=== PATIENT | male | born 1980 | race Caucasian/White ===

== ENCOUNTER 2017-12-03 04:03 | Emergency (ER) | payer SELFPAY ==
[~2017-12-03] VITALS: Ht 175.3 cm; Wt 83.9 kg
[2017-12-03] MEDS ORDERED: TRAMADOL HCL 50 MG TAB PO ONE (04:45)
[2017-12-03] MEDS ORDERED: METHYLPREDNISOLONE SOD SUCC 125 MG/2ML VIAL IV ONE (04:45)
[2017-12-03 04:46] LABS: BASOPHILS # (AUTO) 0.1 (0.0-0.1); BASOPHILS % 0.6 % (0.0-1.0); EOSINOPHILS # (AUTO) 0.2 (0.0-0.4); EOSINOPHILS % 1.2 % (0.0-6.0); HEMATOCRIT 39.5 % (38.2-49.6); HEMOGLOBIN 13.5 g/dL (14.0-18.0); LYMPHOCYTES # (AUTO) 1.5 (1.0-3.2); LYMPHOCYTES % 11.9 % (18.0-39.1); MEAN CORPUSCULAR HEMOGLOBIN 30.2 pg (28-32); MEAN CORPUSCULAR HGB CONC 34.2 g/dL (31-35); MEAN CORPUSCULAR VOLUME 88.4 fL (81-99); MONOCYTES % 8.1 % (4.4-11.3); NEUTROPHILS # (AUTO) 9.8 (2.1-6.9); NEUTROPHILS % 76.5 % (38.7-80.0); PLATELET COUNT 305 x10e3/uL (140-360); RED BLOOD COUNT 4.47 x10e6/uL (4.3-5.7)
[2017-12-03 05:04] LABS: ALANINE AMINOTRANSFERASE 38 IU/L (0-55); ALBUMIN 3.7 g/dL (3.5-5.0); ALBUMIN/GLOBULIN RATIO 1.1 (0.8-2.0); ALKALINE PHOSPHATASE 67 IU/L (40-150); ANION GAP 10.6 mmol/L (8-16); BLOOD UREA NITROGEN 14 mg/dL (7-26); BUN/CREATININE RATIO 17 (6-25); CALCIUM 9.2 mg/dL (8.4-10.2); CARBON DIOXIDE 26 mmol/L (22-29); CHLORIDE 101 mmol/L (98-107); CREATININE, SERUM 0.82 mg/dL (0.72-1.25); EST GLOMERULAR FILTRATION RATE > 60 ML/MIN (60-); GLUCOSE 102 mg/dL (74-118); POTASSIUM 3.6 mmol/L (3.5-5.1); SODIUM 134 mmol/L (136-145)
[2017-12-03] MEDS ORDERED: KETOROLAC TROMETHAMINE 30 MG/ML VIAL IV STA (05:18)
--- NOTE | 2017-12-03 05:31 | Diagnostic Imaging Report ---
FOOT RIGHT COMPLETE, FOOT LEFT COMPLETE Comparison: None Clinical history: Foot pain, swelling Findings: Right and left foot: There is, shaped appearance of the navicular with sclerosis and cystic change, fragmentation (on lateral view) and underlying talonavicular degenerative changes. Slight medial peritalar subluxation and subluxation of the cuboid with respect to the calcaneus. 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 Discussed with Physician: RENZO HERNANDEZ MD at 525 AM on 12/03/17. Signed by: Dr Harriett Aburto MD on 12/03/2017 5:27 AM
== END 2017-12-03 06:15 | disposition home or self-care (01) ==
LOC: ER 04:03
DX: M79.672 Pain in left foot (principal); M79.671 Pain in right foot; R60.9 Edema, unspecified; M87.9 Osteonecrosis, unspecified
CPT/HCPCS: 36415; 73630 ×2; 80053; 85025; 96374; 99284; J1885; J2930

== ENCOUNTER → 2021-11-25 | Day surgery (SDC) | payer MEDICARE ==
[~2021-11-25] MED LIST: ATROPINE SULFATE 1 MG/ML VIAL ONE; BUPIVACAINE HCL 0.5% INJ 30 ML VIAL INJ ONE; DEXAMETHASONE SOD PHOS INJ 4 MG/ML SDV ONE; FENTANYL CITRATE/PF 100MCG/2 ML INJ ONE; GLYCOPYRROLATE INJ 0.2 MG/ML VIAL ONE; KETOROLAC TROMETHAMINE 30 MG/ML VIAL ONE; MIDAZOLAM HCL 2 MG/2 ML VIAL ONE; ONDANSETRON HCL INJ 2MG/ML 2ML 2 MG/ML VIAL ONE; POVIDONE IODINE 0.05% 0.05 % ML PO ONE; PROPOFOL IV EMULSION 10 MG/ML 20 ML VIAL ONE; SEVOFLURANE INHAL SOLN 250 ML PEN BTL ONE
[2021-11-25 13:55] VITALS: BP 120/75
== END | disposition home or self-care (01) ==
LOC: OR 09:54
PROVIDERS: ATTEND Podiatrist Foot & Ankle Surgery
DX: G57.51 Tarsal tunnel syndrome, right lower limb (principal); G57.31 Lesion of lateral popliteal nerve, right lower limb; R00.1 Bradycardia, unspecified; Z01.810 Encounter for preprocedural cardiovascular examination; Z01.812 Encounter for preprocedural laboratory examination; Z20.822 Contact with and (suspected) exposure to COVID-19
CPT/HCPCS: 28035; 64704; 93005; J0461; J0690; J1100; J1885; J2250; J2405; J2704; J3010; U0002